=== PATIENT | female | born 1985 | race Hispanic/Latino ===

== ENCOUNTER 2020-08-01 22:48 | Inpatient (IN) | payer SELFPAY ==
[~2020-08-01] VITALS: Ht 152.4 cm; Wt 83.9 kg
[2020-08-01] MEDS ORDERED: ONDANSETRON HCL INJ 2MG/ML 2ML 2 MG/ML VIAL IV STA (23:05)
--- NOTE | 2020-08-01 23:10 | Emergency Department Note ---
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 PT HAD BARIATRIC SURGERY LAST SEPTEMBER, REPORTS SHE NEVER REALLY EATS OR DRINKS MUCH SINCE HAVING THE SURGERY Historian: Patient, Family Member Arrival Mode: Car Onset (how long ago): minute(s) (30) Location: HEAD Quality: HEADACHE,WEAKNESS, SYNCOPE Radiation: Reports non-radiation Severity: moderate Onset quality: sudden Duration (how long): hour(s) (30 MINUTES) Chronicity: new Context: Denies recent illness, Denies recent surgery, Denies recent travel, Denies trauma/injury Relieving factors: none Exacerbating factors: none Associated symptoms: Reports headaches Treatments prior to arrival: none Past Medical/Family History Physician Review I have reviewed the patient's past medical and family history. Any updates have been documented here. Past Medical History Recent Fever: No Clinical Suspicion of Infectio: No New/Unexplained Change in Ment: No Past Medical History: Anxiety, Depression Past Surgical History: Tubal Ligation, , Bariatric Surgery Other Surgery: X3 GASTRIC SLEEVE Social History Smoking Cessation: Never Smoker Alcohol Use: None Any Illegal Drug Use: No Family History Family history of heart diseas: No Review of Systems Review of Systems Constitutional: Reports weakness EENTM: Reports no symptoms Cardiovascular: Reports no symptoms Respiratory: Reports no symptoms Gastrointestinal: Reports no symptoms Genitourinary: Reports no symptoms Musculoskeletal: Reports no symptoms Integumentary: Reports no symptoms Neurological: Reports as per HPI Psychological: Reports no symptoms Endocrine: Reports no symptoms Hematological/Lymphatic: Reports no symptoms Physical Exam Related Data Allergies: Coded Allergies: No Known Allergies (Unverified , 08/01/20) Triage Vital Signs Vital Signs Date Time Temp Pulse Resp B/P (MAP) Pulse Ox O2 Delivery O2 Flow Rate FiO2 08/01/20 22:53 98.3 58 18 99/65 100 Room Air Vital signs reviewed: Yes Physical Exam CONSTITUTIONAL Constitutional: Present well-developed, Present well-nourished; Absent distressed HENT HENT: Present normocephalic, Present atraumatic, Present oropharynx clear/moist, Present nose normal HENT L/R: Present left ext ear normal, Present right ext ear normal EYES Eyes: Reports PERRL, Reports conjunctivae normal NECK Neck: Present ROM normal PULMONARY Pulmonary: Present effort normal, Present breath sounds normal CARDIOVASCULAR Cardiovascular: Present regular rhythm, Present heart sounds normal, Present capillary refill normal, Present bradycardia (58) GASTROINTESTINAL Abdominal: Present soft, Present nontender, Present bowel sounds normal GENITOURINARY Genitourinary: Present exam deferred SKIN Skin: Present warm, Present dry MUSCULOSKELETAL Musculoskeletal: Present ROM normal NEUROLOGICAL Neurological: Present alert, Present oriented x 3, Present no gross motor or sensory deficits PSYCHOLOGICAL Psychological: Present mood/affect normal, Present judgement normal Results Laboratory Laboratory Laboratory Tests Test 08/01/20 23:40 08/01/20 23:06 Urine Color Yellow (YELLOW) Urine Clarity Sl cloudy (CLEAR) Urine pH 5.5 (5 - 7) Urine Specific [place] >=1.030 (1.010-1.025) Urine Protein Trace (NEGATIVE) Urine Glucose (UA) Negative (NEGATIVE) Urine Ketones Trace (NEGATIVE) Urine Blood Trace (NEGATIVE) Urine Nitrite Negative (NEGATIVE) Urine Bilirubin Small (NEGATIVE) Urine Urobilinogen 0.2 mg/dL (0.2 - 1) Urine Leukocyte Esterase Negative (NEGATIVE) Urine RBC 6-10 /HPF (0-5) Urine WBC 6-10 /HPF (0-5) Urine Epithelial Cells Moderate /LPF (NONE) Urine Bacteria Many /HPF (NONE) Urine Hyaline Casts 2-5 (0-1) Urine Fine Granular Casts 1-5 (0) Urine Mucus Many (RARE) Urine Test Negative (NEGATIVE) Lactic Acid Level 0.9 mmol/L (0.5-2.0) Urine Opiates Screen Negative (NEGATIVE) Urine Methadone Screen Negative (NEGATIVE) Urine Barbiturates Screen Negative (NEGATIVE) Urine Phencyclidine Screen Negative (NEGATIVE) Urine Amphetamines Screen Negative (NEGATIVE) Urine Methamphetamines Screen Negative (NEGATIVE) Urine Benzodiazepines Screen Negative (NEGATIVE) Urine Cocaine Screen Negative (NEGATIVE) Urine Cannabinoids Screen Positive (NEGATIVE) White Blood Count 7.61 x10e3/uL (4.8-10.8) Red Blood Count 4.12 x10e6/uL (3.6-5.1) Hemoglobin 10.3 g/dL (12.0-16.0) Hematocrit 33.2 % (34.2-44.1) Mean Corpuscular Volume 80.6 fL (81-99) Mean Corpuscular Hemoglobin 25.0 pg (28-32) Mean Corpuscular Hemoglobin Concent 31.0 g/dL (31-35) Red Cell Distribution Width 14.2 % (11.7-14.4) Platelet Count 295 x10e3/uL (140-360) Neutrophils (%) (Auto) 64.4 % (38.7-80.0) Lymphocytes (%) (Auto) 25.5 % (18.0-39.1) Monocytes (%) (Auto) 5.1 % (4.4-11.3) Eosinophils (%) (Auto) 4.3 % (0.0-6.0) Basophils (%) (Auto) 0.4 % (0.0-1.0) Neutrophils # (Auto) 4.9 (2.1-6.9) Lymphocytes # (Auto) 1.9 (1.0-3.2) Monocytes # (Auto) 0.4 (0.2-0.8) Eosinophils # (Auto) 0.3 (0.0-0.4) Basophils # (Auto) 0.0 (0.0-0.1) Absolute Immature Granulocyte (auto 0.02 x10e3/uL (0-0.1) Sodium Level 140 mmol/L (136-145) Potassium Level 3.6 mmol/L (3.5-5.1) Chloride Level 107 mmol/L (98-107) Carbon Dioxide Level 24 mmol/L (22-29) Anion Gap 12.6 mmol/L (8-16) Blood Urea Nitrogen 14 mg/dL (7-26) Creatinine 0.90 mg/dL (0.57-1.11) Estimat Glomerular Filtration Rate > 60 ML/MIN (60-) BUN/Creatinine Ratio 16 (6-25) Glucose Level 97 mg/dL (74-118) Calcium Level 8.8 mg/dL (8.4-10.2) Magnesium Level 2.1 MG/DL (1.3-2.1) Total Bilirubin 0.2 mg/dL (0.2-1.2) Aspartate Amino Transf (AST/SGOT) 9 IU/L (5-34) Alanine Aminotransferase (ALT/SGPT) < 6 IU/L (0-55) Alkaline Phosphatase 54 IU/L (40-150) Creatine Kinase 38 IU/L (29-168) Creatine Kinase MB 0.30 ng/mL (0-5.0) Troponin I 0.005 ng/mL (0-0.300) Total Protein 6.9 g/dL (6.5-8.1) Albumin 3.7 g/dL (3.5-5.0) Globulin 3.2 g/dL (2.3-3.5) Albumin/Globulin Ratio 1.2 (0.8-2.0) Ethyl Alcohol Level < 10.0 mg/dL (0.0-10.0) Lab results reviewed: Yes Imaging Imaging results reviewed: Yes Impressions Procedure: [id number] CT/CT BRAIN WO Exam Date: Exam Time: REPORT STATUS: Signed Exam: Head CT without contrast History: Weakness, syncope Comparison studies: None Technique: Axial images were obtained from the skull base to the vertex. Coronal and sagittal images reconstructed from the axial data. Dose modulation, iterative reconstruction, and/or weight based adjustment of the mA/kV was utilized to reduce the radiation dose to as low as reasonably achievable. Radiation dose: Total DLP: 921.4 mGy*cm. Estimated effective dose: DLP x 0.015 Intravenous contrast: None Findings: Scalp: No abnormalities. Bones: No fractures, blastic or lytic lesions. Brain sulci: Appropriate for age. Ventricles: Normal in size and configuration. No hydrocephalus. Extra-axial spaces: No masses, no fluid collection. Parenchyma: No abnormal densities. No masses acute hemorrhage, acute or chronic vascular insults. Sellar/suprasellar region: No abnormalities. Craniocervical junction: Patent foramen magnum. No Chiari one malformation. Included paranasal sinuses: Clear. Middle ear cavities and mastoids: Clear. Incidental findings: 6 mm pineal cyst without mass effect on the underlying midbrain tectum or sylvian aqueduct. IMPRESSION: No acute intracranial abnormalities. Signed by: Dr. Augusto Cantu M.D. on 08/02/2020 12:55 AM Dictated By: AUGUSTO CANTU MD 0055 Transcribed By: DAYAMI on 08/02/2054 COPY TO: ANKIT YING MD~ Procedure: [id number] DX/CHEST SINGLE (PORTABLE) Exam Date: Exam Time: REPORT STATUS: Signed EXAMINATION: CHEST SINGLE (PORTABLE) INDICATION: SYNCOPE COMPARISON: None FINDINGS: TUBES and LINES: None. LUNGS: Normal lung volumes. Lungs are clear. No consolidations. PLEURA: No pleural effusion or pneumothorax. HEART AND MEDIASTINUM: The cardiomediastinal silhouette is unremarkable. BONES AND SOFT TISSUES: No acute osseous lesion. Soft tissues are unremarkable. UPPER ABDOMEN: No free air under the diaphragm. IMPRESSION: No acute thoracic radiographic abnormality. Signed by: Bárbara Alaniz MD on 08/02/2020 1:00 AM Dictated By: BÁRBARA ALANIZ MD Transcribed By: DAYAMI on 08/02/2099 COPY TO: ANKIT YING MD~ Procedures 12 Lead ECG Interpretation ECG Interpretation : ECG: ECG 1 Coat Padder: Interpreted by ED physician Date: Aug 01, 2020 Time: 23:15 Rhythm: sinus bradycardia Rate: bradycardia BPM: 53 QRS axis: normal ST segments normal: Yes T waves normal: Yes Clinical Impression: non-specific ECG Assessment & Plan Medical Decision Making MDM PT WITH WEAKNESS AND REPORTED SYNCOPE WITH HEADACHE CBC, CMP, UA, UDS, ETOH, EKG, CARDIAC ENZYMES, CT BRAIN ORDERED TO EVAL FOR MYOCARDIAL INFARCTION, ARRYTHMIA, UTI, DRUG USE, INTRACRANIAL ABNORMALITY(BLEED, MASS) ELECTROLYTE ABNORMALITY, ANEMIA 1 LITER NS IV BOLUS ORDERED PT HAD BP OF 54/31 SO A TOTAL OF 2600 CC NS IV BOLUS ORDERED FOR 30CC/KG NS IV BOLUS BARIATRIC BAG ORDERED AT 150CC/HOUR TIMES 1 LITER I SPOKE WITH DR BLAKE AND DR CORRALES, PLACE PT IN ICU, CONTINUE IV HYDRATION Reassessment Reassessment time: 01:17 Reassessment PT FEELING BETTER, NO LONGER DIZZY, HEADACHE HAS RESOLVED BP NOW 103/66, HEART RATE 57, RR16, O2 SATURATION 100% ON ROOM AIR Assessment & Plan Final Impression: (1) Hypovolemic shock Depart Disposition: ADMITTED Last Vital Signs Date Time Temp Pulse Resp B/P (MAP) Pulse Ox O2 Delivery O2 Flow Rate FiO2 08/01/20 22:53 98.3 58 18 99/65 100 Room Air ANKIT YING MD Aug 01, 2020 23:09
[2020-08-01 23:15] LABS: BASOPHILS % 0.4 % (0.0-1.0); EOSINOPHILS # (AUTO) 0.3 (0.0-0.4); EOSINOPHILS % 4.3 % (0.0-6.0); HEMATOCRIT 33.2 % (34.2-44.1); HEMOGLOBIN 10.3 g/dL (12.0-16.0); LYMPHOCYTES # (AUTO) 1.9 (1.0-3.2); LYMPHOCYTES % 25.5 % (18.0-39.1); MEAN CORPUSCULAR VOLUME 80.6 fL (81-99); MONOCYTES # (AUTO) 0.4 (0.2-0.8); MONOCYTES % 5.1 % (4.4-11.3); NEUTROPHILS # (AUTO) 4.9 (2.1-6.9); NEUTROPHILS % 64.4 % (38.7-80.0); PLATELET COUNT 295 x10e3/uL (140-360); RED BLOOD COUNT 4.12 x10e6/uL (3.6-5.1); RED CELL DISTRIBUTION WIDTH 14.2 % (11.7-14.4)
[2020-08-01] MEDS ORDERED: SODIUM CHLORIDE 0.9% 1000ML 1,000 ML IV ONE (23:15)
--- OUTSIDE RECORDS SUMMARY | 2020-08-01 23:18 | XMS REPORT | Continuity of Care Document ---
Author Author [facility] t Organization [facility] Address [address] [place] [address] Phone Unavailable Care Team Providers Care Pulverizer Tender Name Role Phone Asked, Pcp No PCP Unavailable Logan Lou MD Attphys Tim Law RD Attphys Unavailable Payers Payer Name Policy Type Policy Number Effective Date Expiration Date S rina BCBSBCBS CHOICE PPO/FEDERAL EMPL [id number] 2015- sentPPO [id number] 2016 00:00:00 Omega Parekh Problems Condition Name Condition Details Condition Category Status Onset Date Resolution Date Last Treatment Date Treating Clinician Comments Source Volume depletion Volume depletion Disease Active 2018-06-20 00:00:00 Omega Parekh Allergies, Adverse Reactions, Alerts Allergy Name Allergy Type Status Severity Reaction(s) Onset Date Inacti ve Date Treating Clinician Comments Source No Known Allergies DA Active U 2019-10-08 00:00:00 [facility] Family History Family Member Diagnosis Comments Start Date Stop Date Source Natural father Diabetes [place] [facility] Natural mother Alzheimer's disease [place] Y[place]ani Natural mother Diabetes [place] [facility] Natural mother Hyperlipidemia [place] Y[place] Natural mother Hypertension [place] Yarsani Social History Social Habit Start Date Stop Date Quantity Comments Source Sex Assigned At Alfonzo Parekh Tobacco use and exposure 2018-06-20 00:00:00 2018-06-20 00:00:00 Messi rojo used [place] Yarsani Alcohol intake 2018-06-20 00:00:00 2018-06-20 00:00:00 Current drinker of alcohol (finding) Omega Parekh Alcohol Comment 2018-06-20 00:00:00 2018-06-20 00:00:00 Social Omega Parekh Smoking Status Start Date Stop Date Source Never smoker Omega [facility] Medications Ordered Medication Name Filled Medication Name Start Date Stop Da te Current Medication? Ordering Clinician Indication Dosage Frequency Signature (SIG) Comments Components Source promethazine (PHENERGAN) 50 MG tablet 2018-06-21 00:00:00 Y es 25mg Q6H Take 0.5 tablets (25 mg total) by mouth every 6 (six) hours as needed for nausea or vomiting for up to 10 doses. Omega Parekh Vital Signs Vital Name Observation Time Observation Value Comments Source Body height 2019-09-02 12:21:00 154.9 cm Omega P[facility]kh Body weight 2019-09-02 12:21:00 122.29 kg Omega P[facility]kh BMI 2019-09-02 12:21:00 50.94 kg/m2 Omega P[facility]kh Procedures Procedure Date / Time Performed Performing Clinician Sourc e AMB REFERRL TO WEIGHT MANAGEMENT- BARIATRIC SERVICES 2018 12:37:35 Rodolfo Lou Plan of Care Planned Activity Planned Date Details Comments Source Future Scheduled Test 2020-05-22 00:00:00 INFLUENZA VACCINE [code = INFLUENZA VACCINE] Omega Parekh Future Scheduled Test 2006 00:00:00 Screening for preeti gnant neoplasm of cervix (procedure) [code = 155210065] Omega reid Results Test Description Test Time Test Comments Results Result Comments Source UR HCG QUAL 2019-10-09 11:04:00 Test Item UR HCG QUAL (test code = HCGQLU) NEGATIVE NEGATIVE
--- OUTSIDE RECORDS SUMMARY | 2020-08-01 23:18 | XMS REPORT | Clinical Summary ---
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 Active Problems Problem Noted Date Volume depletion 06/20/2018 Encounters Care Team Description Date Type Specialty Rodolfo Lou MD Pritchard, Sherry M, RD Morbid obesity (HCC) 09/02/2019 Consult Weight Management Rodolfo Lou MD Morbid obesity (HCC) (Primary Dx) 08/20/2019 Transcribe Weight Management Orders after 08/01/2019 Surgical History Surgery Date Site/Laterality Comments SECTION, LOW TRANSVERSE TUBAL LIGATION Family History Medical History Relation Name Comments Diabetes Father Alzheimer's disease Mother Diabetes Mother Hyperlipidemia Mother Hypertension Mother Relation Name Status Comments Father Mother Social History Date Tobacco Use Types Packs/Day Years Used Never Smoker Smokeless Tobacco: Never Used Drinks/Week oz/Week Comments Alcohol Use Social Yes Sex Assigned at Date Recorded Not on file Last Filed Vital Signs Reading Time Taken Comments Vital Sign - - Blood Pressure - - Pulse - - Temperature - - Respiratory Rate - - Oxygen Saturation - - Inhaled Oxygen Concentration 122 kg (269 lb 9.6 oz) 09/02/2019 12:21 PM SCANNING SUPERVISOR Weight 154.9 cm (5' 1") 09/02/2019 12:21 PM SCANNING SUPERVISOR Height 50.94 09/02/2019 12:21 PM SCANNING SUPERVISOR Body Mass Index Plan of Treatment Health Maintenance Due Date Last Done Comments CERVICAL CANCER SCREENING 2006 INFLUENZA VACCINE 05/22/2020 Procedures Comments Procedure Name Priority Date/Time Associated Diag nosis AMB REFERRL TO WEIGHT Routine 09/02/2019 Morbi d obesity (HCC) MANAGEMENT- BARIATRIC 12:37 PM SCANNING SUPERVISOR SERVICES after 08/01/2019 Results * AMB Referral to Weight Management-Bariatric Services (09/02/2019 12:37 PM SCANNING SUPERVISOR) after 08/01/2019 Insurance Type Payer Benefit Subscriber ID Effective Phone Address Plan / Dates Group PPO BCBS BCBS [id number] 2016-P CHOICE resent PPO/GERRY LARA PPO Advance Directives For more information, please contact: [phone] Patient Engineer/Conductor Explanation Type Date Recorded Advance Directives, Living Will and Medical Power of Admitting Officer Advance Directives, 06/20/2018 1:42 PM Living Will and Medical Power of Admitting Officer
[2020-08-01] MEDS ORDERED: SODIUM CHLORIDE 0.9% 1000ML 1,000 ML ONE (23:30)
[2020-08-01] MEDS ORDERED: SODIUM CHLORIDE 0.9% 1000ML 1,000 ML IV SCH (23:30)
[2020-08-01] MEDS ORDERED: SODIUM CHLORIDE 0.9% 100 ML 100 ML IV ONE (23:30)
[2020-08-01] MEDS ORDERED: SODIUM CHLORIDE 0.9% 500ML 500 ML IV ONE (23:30)
[2020-08-01] MEDS ORDERED: MULTIVITAMINS- 12 INJECTION 10 ML, FOLIC ACID MDV 5 MG, THIAMINE HCL INJ 500 MG in SODI... IV ONE (23:30)
[2020-08-01 23:33] LABS: MAGNESIUM 2.1 MG/DL (1.3-2.1)
[2020-08-01 23:35] LABS: ALBUMIN 3.7 g/dL (3.5-5.0); ALBUMIN/GLOBULIN RATIO 1.2 (0.8-2.0); ALKALINE PHOSPHATASE 54 IU/L (40-150); ANION GAP 12.6 mmol/L (8-16); BLOOD UREA NITROGEN 14 mg/dL (7-26); BUN/CREATININE RATIO 16 (6-25); CALCIUM 8.8 mg/dL (8.4-10.2); CARBON DIOXIDE 24 mmol/L (22-29); CHLORIDE 107 mmol/L (98-107); CREATINE KINASE 38 IU/L (29-168); EST GLOMERULAR FILTRATION RATE > 60 ML/MIN (60-); GLUCOSE 97 mg/dL (74-118); POTASSIUM 3.6 mmol/L (3.5-5.1); SODIUM 140 mmol/L (136-145)
[2020-08-01] MEDS ORDERED: SODIUM CHLORIDE 0.9% 100 ML ONE (23:38)
[2020-08-01 23:43] LABS: ALANINE AMINOTRANSFERASE < 6 IU/L (0-55)
[2020-08-01 23:55] LABS: AMPHETAMINES SCREEN,URINE NEGATIVE (NEGATIVE); BENZODIAZEPINES SCREEN,URINE NEGATIVE (NEGATIVE); BILIRUBIN,URINE SMALL (NEGATIVE); CLARITY,URINE SL CLOUDY (CLEAR); COLOR,URINE YELLOW (YELLOW); LEUKOCYTE ESTERASE ,URINE NEGATIVE (NEGATIVE); NITRITE,URINE NEGATIVE (NEGATIVE); PHENCYCLIDINE SCREEN,URINE NEGATIVE (NEGATIVE); URINE UROBILINOGEN 0.2 mg/dL (0.2 - 1)
[2020-08-01 23:56] LABS: KETONES,URINE TRACE (NEGATIVE); PREGNANCY TEST, URINE NEGATIVE (NEGATIVE); PROTEIN,URINE DIPSTICK TRACE (NEGATIVE)
[2020-08-02] VITALS (14 sets, daily range): BP systolic 95–155; BP diastolic 56–96
[2020-08-02 00:34] LABS: BACTERIA,URINE MANY /HPF; EPITHELIAL CELLS,URINE MODERATE /LPF
[2020-08-02 00:35] LABS: MUCUS,URINE MANY (RARE)
--- NOTE | 2020-08-02 00:59 | Diagnostic Imaging Report ---
Exam: Head CT without contrast History: Weakness, syncope Comparison studies: None Technique: Axial images were obtained from the skull base to the vertex. Coronal and sagittal images reconstructed from the axial data. Dose modulation, iterative reconstruction, and/or weight based adjustment of the mA/kV was utilized to reduce the radiation dose to as low as reasonably achievable. Radiation dose: Total DLP: 921.4 mGy*cm. Estimated effective dose: DLP x 0.015 Intravenous contrast: None Findings: Scalp: No abnormalities. Bones: No fractures, blastic or lytic lesions. Brain sulci: Appropriate for age. Ventricles: Normal in size and configuration. No hydrocephalus. Extra-axial spaces: No masses, no fluid collection. Parenchyma: No abnormal densities. No masses acute hemorrhage, acute or chronic vascular insults. Sellar/suprasellar region: No abnormalities. Craniocervical junction: Patent foramen magnum. No Chiari one malformation. Included paranasal sinuses: Clear. Middle ear cavities and mastoids: Clear. Incidental findings: 6 mm pineal cyst without mass effect on the underlying midbrain tectum or sylvian aqueduct. IMPRESSION: No acute intracranial abnormalities. Signed by: Dr. Terrell Cantu M.D. on 08/02/2020 12:55 AM
--- NOTE | 2020-08-02 01:03 | Diagnostic Imaging Report ---
EXAMINATION: CHEST SINGLE (PORTABLE) INDICATION: SYNCOPE COMPARISON: None FINDINGS: TUBES and LINES: None. LUNGS: Normal lung volumes. Lungs are clear. No consolidations. PLEURA: No pleural effusion or pneumothorax. HEART AND MEDIASTINUM: The cardiomediastinal silhouette is unremarkable. BONES AND SOFT TISSUES: No acute osseous lesion. Soft tissues are unremarkable. UPPER ABDOMEN: No free air under the diaphragm. IMPRESSION: No acute thoracic radiographic abnormality. Signed by: Felton Orozco MD on 08/02/2020 1:00 AM
--- OUTSIDE RECORDS SUMMARY | 2020-08-02 01:26 | XMS REPORT | Clinical Summary ---
Author Author [facility] Organization [facility] Address Unknown Phone Unavailable Care Team Providers Care Air Tool Operator Name Role Phone Asked, No Pcp PCP [...] Dx) 08/20/2019 Transcribe Weight Management Orders after 08/02/2019 Surgical History Surgery Date Site/Laterality Comments SECTION, [...] (269 lb 9.6 oz) 09/02/2019 12:21 PM COMMUNITY DEVELOPMENT OFFICER Weight 154.9 cm (5' 1") 09/02/2019 12:21 PM COMMUNITY DEVELOPMENT OFFICER Height 50.94 09/02/2019 12:21 PM COMMUNITY DEVELOPMENT OFFICER Body Mass Index Plan of Treatment Health Maintenance Due Date Last Done Comments CERVICAL CANCER SCREENING 2006 INFLUENZA VACCINE 05/22/2020 Procedures Comments Procedure Name Priority Date/Time Associated Diag nosis AMB REFERRL TO WEIGHT Routine 09/02/2019 Morbi d obesity (HCC) MANAGEMENT- BARIATRIC 12:37 PM COMMUNITY DEVELOPMENT OFFICER SERVICES after 08/02/2019 Results * AMB Referral to Weight Management-Bariatric Services (09/02/2019 12:37 PM COMMUNITY DEVELOPMENT OFFICER) after 08/02/2019 Insurance Type Payer Benefit Subscriber ID Effective Phone Address Plan / Dates Group PPO BCBS BCBS [id number] 2016-P CHOICE resent PPO/GERRY LARA PPO Advance Directives For more information, please contact: [phone] 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
--- OUTSIDE RECORDS SUMMARY | 2020-08-02 01:26 | XMS REPORT | Continuity of Care Document ---
Author Author [facility] t Organization [facility] Address [address] [place] [address] Phone Unavailable Care Team Providers Care Airset Caster Name Role Phone Asked, Pcp No PCP Unavailable Leslie YING Attphys Unavailable Dasha SIFUENTES, Logan Reynolds Attphys Tim Law RD Attphys Unavailable Payers Payer Name Policy Type Policy Number Effective Date Expiration Date S ource BCBSBCBS CHOICE PPO/FEDERAL EMPL [id number] 2015-Pre sentPPO [id number] 2016 00:00:00 [facility]kh Problems Condition Name Condition Details Condition Category Status Onset Date Resolution Date Last Treatment Date Treating Clinician Comments Source Volume depletion Volume depletion Disease Active 2018-06-20 00:00:00 Omega Parekh Allergies, Adverse Reactions, Alerts Allergy Name Allergy Type Status Severity Reaction(s) Onset Date Inacti ve Date Treating Clinician Comments Source No Known Allergies DA Active U 2019-10-08 00:00:00 [facility] Family History Family Member Diagnosis Comments Start Date Stop Date Source Natural father Diabetes [place] [facility] Natural mother Alzheimer's disease [place] [facility] Natural mother Diabetes [place] [facility] Natural mother Hyperlipidemia [place] Natural mother Hypertension Omega Parekh Social History Social Habit Start Date Stop Date Quantity Comments Source Sex Assigned At Alfonzodimitris Parekh Tobacco use and exposure 2018-06-20 00:00:00 2018-06-20 00:00:00 Neve r used Omega Parekh Alcohol intake 2018-06-20 00:00:00 2018-06-20 00:00:00 Current [...] / Time Performed Performing Clinician Sourc e DANYELLE REFERRL TO WEIGHT MANAGEMENT- BARIATRIC SERVICES 2018 12:37:35 Rodolfo Lou Plan of Care Planned Activity Planned Date Details Comments Source Future Scheduled Test 2020-05-22 00:00:00 INFLUENZA VACCINE [code = INFLUENZA VACCINE] Omega Parekh Future Scheduled Test 2006 00:00:00 Screening for preeti gnant neoplasm of cervix (procedure) [code = 719499822] [facility] Results Test Description Test Time Test Comments Results Result Comments Source CHEST SINGLE (PORTABLE) 2020-08-02 00:59:00 [facility] [address], [place] [address] Patient Name: JONY BLAKE MR #: [id number] : 1985 Age/Sex: 34/F Req #: [id number] Adm Physician: Ordered by: ANKIT YING MD Report #: [id number] Location: ER Room/Bed: Procedure: [id number] DX/CHEST SINGLE (PORTABLE) Exam Date: Exam Time: REPORT STATUS: Signed EXAMINATION: CHEST SINGLE (PORTABLE) INDICATION: SYNCOPE COMPARISON: None FINDINGS: TUBES and LINES: None. LUNGS: Normal lung volumes. Lungs are clear. No consolidations. PLEURA: No pleural effusion or pneumothorax. HEART AND MEDIASTINUM: The cardiomediastinal silhouette is unremarkable. BONES AND SOFT TISSUES: No acute osseous lesion. Soft tissues are unremarkable. UPPER ABDOMEN: No free air under the diaphragm. IMPRESSION: No acute thoracic radiographic abnormality. Signed by: Bárbara Alaniz MD on 08/02/2020 1:00 AM Dictated By: BÁRBARA ALANIZ MD Transcribed By: DAYAMI on 08/02/2099 COPY TO: ANKIT YING MD CT BRAIN WO 2020-08-02 00:49:00 [place] [address] Patient Name: JONY BLAKE MR #: [id number] : 1985 Age/Sex: 34/F Req #: [id number] Adm Physician: Ordered by: ANKIT YING MD Report #: [id number] Location: ER Room/Bed: Procedure: [id number] CT/CT BRAIN WO Exam Date: Exam Time: REPORT STATUS: Signed Exam: Head CT without contrast History: Weakness, syncope Comparison studies: None Technique: Axial images were obtained from the skull base to the vertex. Coronal and sagittal images reconstructed from the axial data. Dose modulation, iterative reconstruction, and/or weight based adjustment of the mA/kV was utilized to reduce the radiation dose to as low as reasonably achievable. Radiation dose: Total DLP: 921.4 mGy*cm. Estimated effective dose: DLP x 0.015 Intravenous contrast: None Findings: Scalp: No abnormalities. Bones: No fractures, blastic or lytic lesions. Brain sulci: Appropriate for age. Ventricles: Normal in s ize and configuration. No hydrocephalus. Extra-axial spaces: No masses, no fluid collection. Parenchyma: No abnormal densities. No masses acute hemorrhage, acute or chronic vascular insults. Sellar/suprasellar region: No abnormalities. Craniocervical junction: Patent foramen magnum. No Chiari one malformation. Included paranasal sinuses: Clear. Middle ear cavities and mastoids: Clear. Incidental findings: 6 mm pineal cyst without mass effect on the underlying midbrain tectum or sylvian aqueduct. IMPRESSION: No acute intracranial abnormalities. Signed by: Dr. Augusto Cantu M.D. on 08/02/2020 12:55 AM Dictated By: AUGUSTO CANTU MD Transcribed By: DAYAMI on 08/02/2054 COPY TO: ANKIT YING MD UR HCG QUAL 2019-10-09 11:04:00 Test Item UR HCG QUAL (test code = HCGQLU) NEGATIVE NEGATIVE
[2020-08-02] MEDS ORDERED: ONDANSETRON HCL INJ 2MG/ML 2ML 2 MG/ML VIAL IV PRN ×3 (01:30→07:15)
[2020-08-02] MEDS ORDERED: SODIUM CHLORIDE 0.9% 1000ML 1,000 ML IV SCH ×2 (01:30→06:30)
[2020-08-02] MEDS ORDERED: ACETAMINOPHEN 325 MG TAB PO PRN (07:15)
[2020-08-02] MEDS ORDERED: HYDRALAZINE HCL 20 MG/ML VIAL IV PRN (07:15)
[2020-08-02] MEDS ORDERED: ZOLPIDEM TARTRATE 5 MG TAB PO PRN (07:15)
[2020-08-02] MEDS ORDERED: DOCUSATE SODIUM 100 MG CAP PO PRN (07:15)
--- NOTE | 2020-08-02 07:53 | Consultation ---
DATE OF CONSULTATION: Pulmonary Critical Care Consultation CHIEF COMPLAINT: Lightheadedness and fainting. HISTORY OF PRESENT ILLNESS: The patient is a 34-year-old woman. She has a history of gastric sleeve done in September 2019. Yesterday evening, she was in the kitchen cooking when she became lightheaded. According to her , she fainted. There was no report of any fevers, difficulty breathing or chest pain. The patient came to the emergency department and was found to have a low blood pressure in the 80 to 90 systolic range with a heart rate of 50 to 100. She received some intravenous fluids and now feels better. PAST SURGICAL HISTORY: Status post gastric sleeve in 2019, as noted above. PAST MEDICAL HISTORY: 1. No prior history of diabetes. 2. No prior history of hypertension. ALLERGIES: NO KNOWN DRUG ALLERGIES. SOCIAL HISTORY: The patient is not an active smoker. She is not a drinker. FAMILY HISTORY: Noncontributory. REVIEW OF SYSTEMS: No fevers. No headache. No neck pain. She has no chest pain. She has no cough or difficulty breathing. She had no abdominal pain. She has no nausea or vomiting. She does not have any leg edema. She did have some lightheadedness, but this has improved. PHYSICAL EXAMINATION: VITAL SIGNS: Blood pressure is 97/72, with a pulse of 53. HEENT: Shows no facial swelling or erythema. LYMPHATIC: Shows no submandibular, cervical, or supraclavicular adenopathy. CARDIAC: Reveals regular rate and rhythm. Normal S1, S2. LUNGS: Auscultation of lungs reveals rhonchorous breath sounds bilaterally. There is no wheezing. ABDOMEN: Soft and nontender. There is no rebound or guarding. EXTREMITIES: Shows no leg edema or calf tenderness. There is no cyanosis or clubbing. SKIN: Shows no rashes. NEUROLOGICAL: Shows no focal abnormalities. LABORATORY DATA: LBK-ex-kipsmvvupc ratio is normal. Other electrolytes within normal limits. White blood cell count is 7.6 and hemoglobin is 10.3. The platelet count is 295. Urinalysis is significant for 6-10 white blood cells. RADIOGRAPHIC DATA: 1. Chest x-ray shows no active disease. 2. Head CT shows no active disease. IMPRESSION: 1. Lightheadedness, presyncope related to dehydration. 2. Dehydration. 3. Prior gastric sleeve surgery. PLAN: 1. Continue IV hydration as needed. 2. Thiamine and multivitamins. 3. Dietary education regarding prior gastric sleeve. 4. Review EKGs and consider echocardiogram. MD CELINE Ledesma/HILARY /[id number]
[2020-08-02] MEDS: PANTOPRAZOLE SOD 40 MG TABEC PO SCH (08:10)
[2020-08-02] MEDS: MIDODRINE HCL 5 MG TABLET PO SCH ×3 (08:10→15:45)
[2020-08-02] MEDS ORDERED: THIAMINE HCL INJ 100 MG in SODIUM CHLORIDE 0.9% 50ML 50 ML IV SCH (09:00)
--- NOTE | 2020-08-02 09:39 | NUR ---
NEW CONSULT CALLED TO DR DIAZ'S OFFICE PER DR HAYDEN PADRON.
[2020-08-02] MEDS ORDERED: SODIUM CHLORIDE 0.9% 1000ML 1,000 ML IV PRN (10:00)
--- NOTE | 2020-08-02 10:26 | NUR ---
IVF DISCONNECTED FOR PHYSICAL THERAPY EVAL
--- NOTE | 2020-08-02 12:16 | NUR ---
NOTIFIED DR MAZARIEGOS OFFICE REGARDING NEW CONSULT FOR BRADYCARDIA
--- NOTE | 2020-08-02 13:10 | NUR ---
patient assisted to bathroom on continuous monitoring Addendum: 08/02/20 at 1410 by Megan Watkins RN patient reports that she still feels the urge to have bm and feels uncomfortable, notified Dr Ordoñez and new orders received
--- NOTE | 2020-08-02 13:43 | NUR ---
Discontinuing PT services since patient is Mod I in functional mobility. Thank you Addendum: 08/02/20 at 1344 by Jeffrey doan PT Amended: Links added.
[2020-08-02] MEDS ORDERED: LACTULOSE SYRUP 20 GM/30 ML UDC PO ONE (14:15)
[2020-08-02] MEDS ORDERED: DOCUSATE SODIUM 100 MG CAP PO ONE (14:15)
--- NOTE | 2020-08-02 21:55 | NUR ---
@[id number] Transported patient room 107 via wheelchair with nuclear monitoring technician. Patient denies any pain or discomfort.
--- NOTE | 2020-08-02 22:00 | NUR ---
Received pt to unit via w/c a/o, no c/o noted, no s/sx of acute distress noted, Pt resting in bed at this time, bed locked and low, personal items within reach. Bed alarm on, report received. IVF infusing no diff. Will cont to mon
--- NOTE | 2020-08-02 23:27 | Consultation ---
DATE OF CONSULTATION: Cardiology Consultation HISTORY OF PRESENT ILLNESS: The patient is seen examined, and reviewed the chart. 1. Sinus bradycardia, asymptomatic. 2. Status post sleeve bariatric surgery done in September 2019. The patient has lost 75 pounds since that time. 3. Marijuana positive in this admission. The patient is slightly obese. At this time, the patient states when she was cooking dinner last night, the patient dizzy and about to pass out. The patient was brought in the hospital. The patient regained consciousness, when I saw the patient, quite awake, alert, sitting up in the bed without any symptoms. The patient already seen by Dr. Almanzar and possibly Dr. Ordoñez. I am on-call today, but she was admitted yesterday and the call came only about at 2:30 p.m. today. The patient has no chest pain. No cardiac murmur. Echocardiogram is normal. CAT scan is normal. No evidence of congestive heart failure. The patient has no symptoms at all. EKG done shows heart rate of about 54 minute and all laboratory evaluation including troponin is normal. Renal function is normal. IMPRESSION: 1. Sinus bradycardia. 2. Dizziness. At this time, there is no evidence of any cardiac issues on this pleasant lady. Probably she needs neurological evaluation. I will leave it to Dr. Ordoñez, who is the primary physician to decide about the neurologist. Cardiac point of view, there is no need for further cardiac evaluation and I am going to sign off from the case, any cardiac problem, please call me back. MD ANA Alberto/HILARY /[id number]
[2020-08-03] VITALS (8 sets, daily range): BP systolic 89–122; BP diastolic 50–73
--- NOTE | 2020-08-03 03:07 | History and Physical ---
CHIEF COMPLAINT: Lightheadedness, dizziness, and hypotension. HISTORY OF PRESENT ILLNESS: A 34-year-old female, status post gastric sleeve performed in 2019. She presents from home with complaints of underlying lightheadedness and dizziness, in which she fainted according to the reports, in which her brought her in for further evaluation and management. The patient denies any chest pain or any palpitations prior to this. No reports of any seizure-like activity or stroke-like symptoms. She denies any fevers, cough, congestion, or any recent sickness. She does report that she has been having decreased oral intake since her surgery with decrease fluid intake. On arrival, the patient was found to have systolic blood pressures initially one episode found to be in the 50s, but resuscitated volume nj. Since then, her blood pressure has been much improved. She also has a heart rates that ranges in the 50s. She reports that this has been normal for her since she has had her gastric sleeve surgery back in September and has lost significant amount of weight. The patient was evaluated at bedside in the ICU. She is currently doing well, stable at baseline with no other issues at this time. REVIEW OF SYSTEMS: Pertinent positives; lightheadedness, dizziness, and near fainting. Rest of the 14-point review of systems are reviewed with the patient and are negative. ALLERGIES: NO KNOWN DRUG ALLERGIES. HOME MEDICATIONS: None. PAST MEDICAL HISTORY: Morbid obesity. No history of diabetes or hypertension. PAST SURGICAL HISTORY: Gastric sleeve in September 2019. FAMILY HISTORY: Diabetes and hypertension. SOCIAL HISTORY: No drugs. No alcohol. . PHYSICAL EXAMINATION: VITAL SIGNS: Temperature is 97.9, pulse last one recorded 45, respiratory rate is 18, blood pressure 104/59, pulse ox 100% on room air. GENERAL: Not in acute distress. Alert and oriented x3. Cooperative on examination. HEENT: Head is normocephalic and atraumatic. Eyes; pupils are equal, round, and reactive to light bilaterally. PULMONARY: Clear to auscultation bilaterally. No wheezing, rales, or rhonchi. No crackles appreciated. CARDIOVASCULAR: Positive S1 and S2. No murmurs, rubs, or gallops appreciated. ABDOMEN: Soft, nondistended, nontender to palpation. Bowel sounds present. MUSCULOSKELETAL: Strength 5/5 throughout. SKIN: Intact. Warm to touch. Good cap refill. LABORATORY FINDINGS: Show white count 7.6, hemoglobin 10, hematocrit 33, and platelets of 295. Chemistry; sodium 140, potassium 3.6, chloride 107, bicarb 24, anion gap of 12, BUN is 14, creatinine is 0.9, glucose 97, lactic acid 0.9, calcium 8.8, magnesium 2.1. LFTs within normal range. Troponins were negative, albumin was 3.7. Urinalysis, many mucus, 1-5 granular casts, 2-5 hyaline casts, many bacteria, 6-10 wbc's. Urine drug screen positive for cannabinoids. Alcohol level was undetectable. Coronavirus is pending. MICROBIOLOGY: None. 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 No acute intracranial abnormality. Chest x-ray found to be negative. IMPRESSION: 1. Presyncope secondary to dehydration with lightheadedness and dizziness. 2. Hypotension secondary to dehydration. 3. Prior gastric sleeve surgery in September of 2019. 4. 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 5. Sinus bradycardia. PLAN: At this time, the patient has been volume resuscitated and her blood pressure still much improved, but has occasional systolic blood pressure and then lying decent in the low 100s. After further discussion with the patient, she reports since her surgery, she had significant weight loss, her blood pressure is much lower now at the current target goal of the systolic blood pressure in the 90s and low 100s. Her heart rate is also low, which I did consult with Cardiology. Pulmonary Critical Care has been consulted. Continue with IV fluids. Encourage oral feeds. Put her on a bariatric IV fluid bag for thiamine and multivitamins. She will be getting this on a daily basis, which has been for tomorrow. Bariatric Surgery has been consulted. Lovenox for DVT prophylaxis. Consultants involved Pulmonary Critical Care, Bariatric Surgery, and Cardiology. The patient is currently stable, doing well with no complaints. Transferred to [facility]. MD SHAN Cade/HILARY /[id number]
[2020-08-03 07:05] LABS: BASOPHILS % 0.5 % (0.0-1.0); EOSINOPHILS # (AUTO) 0.3 (0.0-0.4); EOSINOPHILS % 4.1 % (0.0-6.0); HEMATOCRIT 29.2 % (34.2-44.1); HEMOGLOBIN 9.5 g/dL (12.0-16.0); LYMPHOCYTES # (AUTO) 2.3 (1.0-3.2); LYMPHOCYTES % 37.2 % (18.0-39.1); MEAN CORPUSCULAR HEMOGLOBIN 26.4 pg (28-32); MEAN CORPUSCULAR HGB CONC 32.5 g/dL (31-35); MEAN CORPUSCULAR VOLUME 81.1 fL (81-99); MONOCYTES # (AUTO) 0.4 (0.2-0.8); MONOCYTES % 6.3 % (4.4-11.3); NEUTROPHILS # (AUTO) 3.2 (2.1-6.9); NEUTROPHILS % 51.6 % (38.7-80.0); PLATELET COUNT 230 x10e3/uL (140-360)
[2020-08-03 07:09] LABS: ALBUMIN/GLOBULIN RATIO 1.2 (0.8-2.0); ALKALINE PHOSPHATASE 50 IU/L (40-150); ANION GAP 9.6 mmol/L (8-16); BLOOD UREA NITROGEN 5 mg/dL (7-26); BUN/CREATININE RATIO 7 (6-25); CARBON DIOXIDE 23 mmol/L (22-29); CHLORIDE 112 mmol/L (98-107); CREATININE, SERUM 0.67 mg/dL (0.57-1.11); EST GLOMERULAR FILTRATION RATE > 60 ML/MIN (60-); GLUCOSE 83 mg/dL (74-118); POTASSIUM 3.6 mmol/L (3.5-5.1); SODIUM 141 mmol/L (136-145)
[2020-08-03 07:10] LABS: ALANINE AMINOTRANSFERASE < 6 IU/L (0-55)
[2020-08-03] MEDS: PANTOPRAZOLE SOD 40 MG TABEC PO SCH (08:09)
[2020-08-03] MEDS: MIDODRINE HCL 5 MG TABLET PO SCH ×3 (08:09→17:13)
[2020-08-03] MEDS: MULTIVITAMINS- 12 INJECTION 10 ML, FOLIC ACID MDV 5 MG, THIAMINE HCL INJ 500 MG in SODI... IV SCH (08:16)
[2020-08-03] MEDS ORDERED: ENOXAPARIN SOD INJ 40 MG/0.4 ML SYR SC SCH (17:00)
--- NOTE | 2020-08-03 19:30 | NUR ---
BEDSIDE SHIFT REPORT RECEIVED FROM DAY RN. PT ALERT AND ORIENTED X3. RESPIRATIONS EVEWN AND UNLABORED. TELE ON. RT PIV NS 100ML/HR.SL IN LEFT ARM - D/C WITH CATH INTACT. PRESSURE DRESSING TO AREA. PT VOIDING WITHOUT DIFFICULTY. CALL LIGHT WITHIN REACH. BED IN LOW POSITION.
[2020-08-04] VITALS: BP 105/62
--- NOTE | 2020-08-04 03:01 | Progress Note ---
DATE: 08/03/2020 Medicine Progress Note SUBJECTIVE: The patient is doing well today. She is alert, awake, and oriented. She is eating very well. Blood pressure much improved. Heart rate seems to be at baseline, in which no further workup needed by Cardiology. PHYSICAL EXAMINATION: VITAL SIGNS: Temperature 97.8, pulse 48, respiratory rate is 24, blood pressure 114/64, pulse ox 100% on room air. GENERAL: No acute distress. Alert and oriented x3. Cooperative on examination. PULMONARY: Clear to auscultation bilaterally. No wheezing, rales, or rhonchi. No crackles appreciated. CARDIOVASCULAR: Positive S1 and S2. No murmurs, rubs, or gallops appreciated. ABDOMEN: Soft, nondistended, nontender to palpation. Bowel sounds present. MUSCULOSKELETAL: Strength 5/5 throughout. LABORATORY DATA: Labs show CBC stable. Chemistry reviewed and stable. MICROBIOLOGY: None. IMAGING STUDIES: Nothing new. IMPRESSION: 1. Presyncope secondary to dehydration with lightheadedness and dizziness-resolved. 2. Hypotension secondary to dehydration-resolved. 3. Prior gastric sleeve performed in September 2019. 4. 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 5. Sinus bradycardia. PLAN: At this time, the patient is doing much better. Decrease midodrine to 5 mg b.i.d. She is doing much better. She is tolerating diet well. Discontinue IV fluids. Remove Tilley catheter. Continue with bariatric bag with thiamine and multivitamins. Plan to discharge tomorrow if cleared by the consultants. MD SHAN Cade/HILARY /[id number]
[2020-08-04 04:00] VITALS: BP 111/69
[2020-08-04 08:35] VITALS: BP 122/62
[2020-08-04 08:45] VITALS: BP 122/62
[2020-08-04] MEDS: PANTOPRAZOLE SOD 40 MG TABEC PO SCH (08:47)
[2020-08-04] MEDS: MIDODRINE HCL 5 MG TABLET PO SCH (08:47)
[2020-08-04] MEDS: MULTIVITAMINS- 12 INJECTION 10 ML, FOLIC ACID MDV 5 MG, THIAMINE HCL INJ 500 MG in SODI... IV SCH (08:48)
[2020-08-04 13:12] VITALS: BP 114/66
[2020-08-04] MEDS ORDERED: THIAMINE H100 MG/1 M PO (14:52)
[2020-08-04] MEDS ORDERED: FOLIC ACID0.8 MG PO (14:53)
--- NOTE | 2020-08-05 08:18 | Discharge Summary ---
FINAL DISCHARGE DIAGNOSES: 1. Presyncope secondary to dehydration with lightheadedness and dizziness, and also possibly polysubstance abuse with cannabinoid-resolved. 2. Hypotension secondary to dehydration - resolved. 3. Prior gastric sleeve performed in September 2019. 4. 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 5. Sinus bradycardia - improved prior to being discharged. CONSULTANTS: 1. Cardiology. 2. Pulmonary Critical Care. PHYSICAL EXAMINATION: VITAL SIGNS: Temperature is 97.6, pulse 80, respiratory rate is 18, blood pressure is 122/62, and pulse ox 99% on room air. LABORATORY DATA: Labs show white count 6.1, hemoglobin 9.5, hematocrit 29, and platelets of 230. Chemistry, sodium 141, potassium 3.6, chloride 112, bicarb 22, anion gap of 9.6, BUN is 5, creatinine is 0.67, glucose is 83, lactic acid 0.9, calcium is 8, and magnesium 2.1. LFTs within normal range. Troponins are negative. Albumin is 3. Urinalysis noted. Toxicology screen positive for cannabinoids in the urine. Alcohol level nondetectable. Serology, coronavirus not detectable. IMAGING STUDIES: CT of the brain found to be negative. Chest x-ray negative. HOSPITAL COURSE: A 34-year-old female comes into the ED with underlying presyncopal episode, found to have significant hypotension and was found to be severely dehydrated. The patient had a gastric sleeve done in September 2019, and since then she was doing okay. Over the last several weeks to months, she has been having decreased oral intake, decreased fluid intake as well, has been very noncompliant with her vitamin supplements as prescribed by her bariatric surgeon. Her bariatric surgery is here in [place], [place]. While here, the patient was given several boluses of fluids, prompting ICU admission and Pulmonary Critical Care consultation. Her blood pressure improved after hydration. There is no evidence of any source of infection. Her white count was normal. She was afebrile. Her blood pressure maintained stable. She did have evidence of bradycardia, sinus noted on cardiac telemetry, prompting Cardiology consultation. Cardiology recommended medical management, and no further workup needed as the patient is asymptomatic from a cardiac standpoint. No further workup needed by Cardiology. Bariatric Surgery was consulted to evaluate this patient, but they did not show up and refused to see the patient. The patient otherwise was doing well. She was on a bariatric IV fluid bag for vitamins, nutrition, and minerals. She maintained on that bariatric bag throughout the hospital course until discharge. She was instructed to continue with her multivitamins, thiamine, folic acid, and vitamin B12 as instructed by her bariatric surgeon whom she sees as an outpatient. She was provided some prescriptions. The patient's heart rate was better. Her blood pressure was much more improved prior to being discharged. She was asymptomatic. She was tolerating her diet well with no issues and was cleared for discharge by all consultants. On the day of discharge, vital signs were stable and labs reviewed and stable. The patient is seen and evaluated and examined thoroughly on the day of discharge, no other complaints. The patient verbalized understanding and agrees to plan of care to follow up as an outpatient with the primary care physician in 1 week and her bariatric surgeon in 1 week time. MEDICATIONS: See med reconciliation form. DISPOSITION: Home. CONDITION: Stable. DIET: Heart healthy. DISCHARGE INSTRUCTIONS: In the event of any worsening symptoms, the patient is advised to come back to the ED for further evaluation. Once again, I have discussed with her to follow up very closely in relation to her blood pressure and heart rate at home, buying a cuff or following up with her PCP. After further discussion, it seems that the patient reports since losing significant amount of weight, her blood pressure and heart rate has become more lower over time over the last several months. She has been asymptomatic in relation to this according to her. Discharge summary took greater than 35 minutes. MD SHAN Cade/HILARY /[id number]
== END 2020-08-04 15:08 | disposition home or self-care (01) | DRG 640 ==
LOC: ER 22:56 → ERHOLD 08-02 01:23 → ICU 08-02 06:17 → IMCU 08-02 15:20 → MED/SURG 08-02 21:49
PROVIDERS: ADMIT Internal Medicine; ATTEND Internal Medicine
DX: E86.0 Dehydration (principal); R57.1 Hypovolemic shock; R00.1 Bradycardia, unspecified; R55 Syncope and collapse; F41.9 Anxiety disorder, unspecified; Z83.3 Family history of diabetes mellitus; Z82.49 Family history of ischemic heart disease and other diseases of the circulatory system; Z98.84 Bariatric surgery status; E66.9 Obesity, unspecified; F12.10 Cannabis abuse, uncomplicated; Z91.19 Patient's noncompliance with other medical treatment and regimen; Z68.36 Body mass index [BMI] 36.0-36.9, adult; Z11.59 Encounter for screening for other viral diseases
CPT/HCPCS: 36415; 51700; 70450; 71045; 80053; 80307; 80320; 81001; 81025; 82550; 82553; 83605; 83735; 84484; 85025; 93005; 93306; 99284; J1650; J2405; J3411; J7030; J7040; J7050